=== PATIENT | female | born 1990 | race Two or more races ===

== ENCOUNTER 2017-05-23 09:07 | Emergency (ER) | payer OTHER ==
[2017-05-23 09:34] VITALS: BP 128/72; PULSE 83; TEMP 98.9; BMI 26.5
--- NOTE | 2017-05-23 09:54 | PDOC ---
History of Present Illness - General Chief Complaint: Ear Problem Stated Complaint: RT EAR PAIN/ ABSCESS Time Seen by Provider: 05/23/17 09:35 History Source: Patient Exam Limitations: No Limitations - History of Present Illness Initial Comments: 05/23/17 09:47 26 yr female with c/o left ear ringing and dullness, post nasal drip and cough for one week. no fever, history of asthma. Timing/Duration: 1 week Severity: mild Past History - Past Medical History Allergies/Adverse Reactions: Allergies Allergy/AdvReac Type Severity Reaction Status Date / Time No Known Drug Allergies Allergy Verified 05/23/17 09:35 fruits Allergy Uncoded 05/23/17 09:35 nuts Allergy Uncoded 05/23/17 09:35 raw vegetables Allergy Uncoded 05/23/17 09:35 Home Medications: Ambulatory Orders Azithromycin [Zithromax 250mg Tablets -] 250 mg PO UTDICT #6 tab 05/23/17 Asthma: Yes Thyroid Disease: Yes - Reproductive History (#): 1 - Psycho/Social/Smoking Cessation Hx Anxiety: Yes Suicidal Ideation: No Smoking History: Never smoked If you are a former smoker, when did you quit?: 2yrs ago Information on smoking cessation initiated: No Hx Alcohol Use: Yes (OCCASIONALLY) Substance Use Type: None Review of Systems - Review of Systems Able to Perform ROS?: Yes Is the patient limited Slovak proficient: No Constitutional: No: Symptoms Reported HEENTM: Yes: Symptoms Reported, See HPI Respiratory: Yes: Cough Cardiac (ROS): No: Symptoms Reported ABD/GI: No: Symptoms Reported *Physical Exam - Vital Signs Last Vital Signs Temp Pulse Resp BP Pulse Ox 98.9 F 83 18 128/72 99 05/23/17 09:32 05/23/17 09:32 05/23/17 09:32 05/23/17 09:32 05/23/17 09:32 - Physical Exam Comments: 05/23/17 09:48 General Appearance: Yes: Nourished, Appropriately Dressed HEENT: positive: EOMI, SYLVIA, Pharyngeal Erythema, Other (cerumen impaction left ear ) Respiratory/Chest: positive: Lungs Clear, Normal Breath Sounds. negative: Wheezing Cardiovascular: positive: Regular Rhythm, Regular Rate Gastrointestinal/Abdominal: positive: Normal Bowel Sounds, Soft Musculoskeletal: positive: Normal Inspection Extremity: positive: Normal Capillary Refill, Normal Inspection, Normal Range of Motion Integumentary: positive: Normal Color, Dry, Warm Neurologic: positive: Fully Oriented, Alert, Normal Mood/Affect, Normal Response , Motor Strength /5 Medical Decision Making - Medical Decision Making 05/23/17 09:49 cc: sore throat, ear dullness, post nasal drip, cough for one week no fever no wheezing will check for strep irrigate left ear for cerumen impaction *DC/Admit/Observation/Transfer Diagnosis at time of Disposition: Impacted cerumen of left ear - Discharge Dispostion Disposition: HOME Condition at time of disposition: Good - Prescriptions Prescriptions: Azithromycin [Zithromax 250mg Tablets -] 250 mg PO UTDICT #6 tab - Referrals Referrals: Prashanth Lopez MD [Primary Care Provider] - [place] MD [Staff Physician] - - Patient Instructions Additional Instructions: follow with the ENT doctor for follow up this week use Flonase nasal spray to help with cough and post nasal drip take motrin every 6hrs for any pain gargle with warm salt water 4-5 times a day to help with sore throat take the antibiotic Zpack as directed
== END 2017-05-23 10:36 | disposition home or self-care (01) ==
LOC: JERFT 09:07 → JER 09:07 → JERFT 10:36
PROC: 3E1B78Z Irrigation of Ear using Irrigating Substance, Via Natural or Artificial Opening (ICD-10-PCS; principal; 2017-05-23)
DX: H61.21 Impacted cerumen, right ear (principal)
CPT/HCPCS: 69209; 87070; 87430; 99281-25

== ENCOUNTER 2018-11-12 08:35 | Emergency (ER) | payer OTHER ==
[2018-11-12 08:43] VITALS: TEMP 98.3; BMI 28.3
[2018-11-12 09:27] LABS: HCG,QUALITATIVE URINE Negative
[2018-11-12 09:31] LABS: URINE APPEARANCE CLEAR; URINE BILIRUBIN NEGATIVE (<2.0 mg/dL); URINE COLOR YELLOW; URINE GLUCOSE (UA) NEGATIVE (NEGATIVE); URINE KETONE NEGATIVE (NEGATIVE); URINE LEUK ESTERASE NEGATIVE (NEGATIVE); URINE NITRITE NEGATIVE (NEGATIVE); URINE PROTEIN NEGATIVE (NEGATIVE); URINE UROBILINOGEN NEGATIVE mg/dL (0.2-1.0)
[2018-11-12] MEDS ORDERED: morphine CARPU-JECT 2 MG/1 ML DISP.SYRIN IVPUSH ONE (09:50)
[2018-11-12] MEDS ORDERED: MORPHINE SULFATE 2 MG/ML VIAL ONE (09:52)
[2018-11-12] MEDS ORDERED: ONDANSETRON 4 MG/2 ML VIAL IVPB ONE (10:00)
[2018-11-12] MEDS ORDERED: ONDANSETRON 4 MG/2 ML VIAL ONE (10:02)
[2018-11-12 10:03] LABS: BASO % 0.5 % (0-2.0); EOS % 1.2 % (0-4.5); HEMOGLOBIN 13.3 GM/dL (10.7-15.3); LYMPH % 7.2 % (8-40); MCH 30.5 pg (25.7-33.7); MCHC 35.2 g/dl (32.0-36.0); MEAN CELL VOLUME 86.8 fl (80-96); MONO % 6.3 % (3.8-10.2); NEUT % 84.8 % (42.8-82.8); PLATELET COUNT 244 K/MM3 (134-434); RBC 4.37 M/mm3 (3.60-5.2); RDW 13.3 % (11.6-15.6); WHITE BLOOD COUNT 9.3 K/mm3 (4.0-10.0)
--- NOTE | 2018-11-12 10:15 | PDOC ---
History of Present Illness - General Chief Complaint: Pain Stated Complaint: PAIN Time Seen by Provider: 11/12/18 08:44 History Source: Patient Exam Limitations: No Limitations - History of Present Illness Travel History: No Initial Comments: 11/12/18 12:12 27 y/o female presents to the ED with c/o sudden left suprapubic pain during vaginal sexual intercourse which now radiates to her right side. Pt states no vaginal bleeding or vaginal pain but had felt nauseated after onset of pain. Pt states had similar s/s 1 year prior during intercourse but did not f/u with medical staff. Pt denies back pain, hx ovarian cyst, vaginal discharge, or fever /chills. Timing/Duration: reports: constant Quality: reports: mild, moderate, cramping Abdominal Pain Onset Location: reports: suprapubic (left) Pain Radiation: reports: no radiation Activities at Onset: reports: none Aggravating Factors: improves with: Movement Alleviating Factors: improves with: None Past History - Travel Traveled outside of the country in the last 30 days: No Close contact w/someone who was outside of country & ill: No - Past Medical History Allergies/Adverse Reactions: Allergies Allergy/AdvReac Type Severity Reaction Status Date / Time No Known Drug Allergies Allergy Verified 11/12/18 08:41 fruits Allergy Uncoded 11/12/18 08:41 nuts Allergy Uncoded 11/12/18 08:41 raw vegetables Allergy Uncoded 11/12/18 08:41 Home Medications: Ambulatory Orders NK [No Known Home Medication] 06/08/18 Asthma: Yes COPD: No DVT: No Dementia: No Thyroid Disease: Yes - Reproductive History (#): 1 - Immunization History Immunization Up to Date: Yes - Suicide/Smoking/Psychosocial Hx Smoking History: Never smoked Have you smoked in the past 12 months: No If you are a former smoker, when did you quit?: 2yrs ago Hx Alcohol Use: No Drug/Substance Use Hx: No Substance Use Type: None Patient Lives Alone: No Lives with/in: spouse/SO Review of Systems - Review of Systems Able to Perform ROS?: Yes Constitutional: No: Symptoms Reported HEENTM: No: Symptoms Reported Respiratory: No: Symptoms reported Cardiac (ROS): No: Symptoms Reported ABD/GI: Yes: Nausea, Abdominal cramping : No: Symptoms Reported Musculoskeletal: No: Symptoms Reported Integumentary: No: Symptoms Reported Neurological: No: Symptoms reported *Physical Exam - Vital Signs Last Vital Signs Temp Pulse Resp BP Pulse Ox 98.3 F 95 H 18 120/74 99 11/12/18 08:39 11/12/18 08:39 11/12/18 08:39 11/12/18 08:39 11/12/18 08:39 - Physical Exam General Appearance: Yes: Nourished, Appropriately Dressed. No: Apparent Distress Female Pelvic Exam: positive: normal external exam, adnexal tenderness (left). negative: cervical os closed, discharge, vaginal bleeding Gastrointestinal/Abdominal: positive: Normal Bowel Sounds, Soft, Tenderness ( left /mid/ right suprapubic) Musculoskeletal: negative: CVA Tenderness Extremity: positive: Normal Inspection Integumentary: positive: Normal Color, Warm, Moist Moderate Sedation - Procedure Monitoring Vital Signs: Procedure Monitoring Vital Signs Temperature 98.3 F 11/12/18 08:39 Pulse Rate 95 H 11/12/18 08:39 Respiratory Rate 18 11/12/18 08:39 Blood Pressure 120/74 11/12/18 08:39 O2 Sat by Pulse Oximetry (%) 99 11/12/18 08:39 ED Treatment Course - LABORATORY CBC & Chemistry Diagram: 11/12/18 10:00 11/12/18 10:00 - ADDITIONAL ORDERS Additional order review: Laboratory Results 11/12/18 09:11 Urine Color Yellow Urine Appearance Clear Urine pH 5.0 Ur Specific [place] 1.027 Urine Protein Negative Urine Glucose (UA) Negative Urine Ketones Negative Urine Blood Negative Urine Nitrite Negative Urine Bilirubin Negative Urine Urobilinogen Negative Ur Leukocyte Esterase Negative Urine HCG, Qual Negative 11/12/18 10:00 RBC 4.37 MCV 86.8 MCHC 35.2 RDW 13.3 MPV 9.0 Neutrophils % 84.8 H Lymphocytes % 7.2 L D Monocytes % 6.3 Eosinophils % 1.2 Basophils % 0.5 - RADIOLOGY Radiology Studies Ordered: Category Date Time Status PELVIC / BLADDER US [US] Stat Ultrasound 11/12/18 09:51 Ordered TRANSVAGINAL ULTRASOUND US [US] Stat Ultrasound 11/12/18 09:51 Ordered - Medications Given in the ED: ED Medications Discontinued Medications Generic Name Dose Route Start Last Admin Trade Name Freq PRN Reason Stop Dose Admin Morphine Sulfate 2 mg 11/12/18 09:50 11/12/18 09:59 Morphine Injection - IVPUSH 11/12/18 09:51 2 mg ONCE ONE Administration Ondansetron HCl 4 mg 11/12/18 10:00 11/12/18 10:03 Zofran Injection IVPB 11/12/18 10:01 4 mg ONCE ONE Administration Medical Decision Making - Medical Decision Making 11/12/18 11:17 CC: lower abd pain w/ nausea after vag sexual intercourse . Hx same 1 year prior Exam: left adnexal and generalized suprapubic tenderness Plan: ua hcg, mso4, u/s. labs 11/12/18 12:19 Laboratory Tests 11/12/18 11/12/18 10:00 10:00 WBC 9.3 Hgb 13.3 Hct 38.0 Neutrophils % 84.8 H Sodium 139 Potassium 4.2 Chloride 109 H Carbon Dioxide 23 Anion Gap 6 L BUN 20 H Creatinine 0.6 Random Glucose 86 Calcium 8.7 Total Bilirubin 0.6 AST 14 L ALT 18 Alkaline Phosphatase 66 Total Protein 7.3 Albumin 4.0 ultrasound shows a 3.3 left hem. cyst with small amt of free fluid w/in the cul de sac, pt given percocet and told to f/u with ob/gym or return to ED if s/s worsen *DC/Admit/Observation/Transfer Diagnosis at time of Disposition: Hemorrhagic cyst of left ovary - Discharge Dispostion Disposition: HOME Condition at time of disposition: Improved - Referrals Referrals: ON STAFF,NOT [Primary Care Provider] - - Patient Instructions Printed Discharge Instructions: DI for Ovarian Cyst Additional Instructions: Apply heating pad to area for some relief. Take tylenol or percocet for pain. Return to the ED if symptoms worsen. 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
[2018-11-12 10:41] LABS: ALK PHOS 66 U/L (45-117); ANION GAP 6 MMOL/L (8-16); BILIRUBIN,TOTAL 0.6 mg/dL (0.2-1); BLOOD UREA NITROGEN 20 mg/dL (7-18); CALCIUM 8.7 mg/dL (8.5-10.1); CHLORIDE 109 mmol/L (98-107); CO2 23 mmol/L (21-32); CREATININE 0.6 mg/dL (0.55-1.3); GLUCOSE,RANDOM 86 mg/dL (74-106); POTASSIUM 4.2 mmol/L (3.5-5.1); SGOT/AST 14 U/L (15-37); SGPT/ALT 18 U/L (13-61); SODIUM 139 mmol/L (136-145); TOT PROT 7.3 g/dl (6.4-8.2)
[2018-11-12] MEDS ORDERED: ACETAMINOPHEN 325 MG TABLET (FP) PO ONE (12:15)
[2018-11-12] MEDS ORDERED: ACETAMINOPHEN 325 MG TABLET (FP) ONE (12:19)
[2018-11-12 12:31] VITALS: BP 106/68; PULSE 87
== END 2018-11-12 12:28 | disposition home or self-care (01) ==
LOC: JER 08:35
PROC: 3E033NZ Introduction of Analgesics, Hypnotics, Sedatives into Peripheral Vein, Percutaneous Approach (ICD-10-PCS; principal; 2018-11-12)
PROC: 3E033GC Introduction of Other Therapeutic Substance into Peripheral Vein, Percutaneous Approach (ICD-10-PCS; 2018-11-12)
DX: N83.202 Unspecified ovarian cyst, left side (principal)
CPT/HCPCS: 36415; 76830-TC; 76856-TC; 80053; 81003; 84703; 85025; 87086; 99283-25

== ENCOUNTER 2018-12-31 17:30 | Emergency (ER) | payer OTHER ==
[2018-12-31 17:43] VITALS: BP 119/74; PULSE 117; TEMP 101.4; BMI 28.3
[2018-12-31] MEDS ORDERED: ALBUTEROL SO4 2.5/IPRATROPIUM 0.5 INH SOL 3 ML VIAL.NEB. NEB ONE ×4 (19:34→20:23)
[2018-12-31] MEDS ORDERED: ACETAMINOPHEN 500 MG TABLET (FP) PO ONE (19:34)
[2018-12-31] MEDS ORDERED: ACETAMINOPHEN 500 MG TABLET (FP) ONE (19:47)
[2018-12-31 20:09] LABS: HCG,QUALITATIVE URINE Negative; URINE APPEARANCE SLCLOUDY; URINE BILIRUBIN NEGATIVE (<2.0 mg/dL); URINE COLOR YELLOW; URINE GLUCOSE (UA) NEGATIVE (NEGATIVE); URINE KETONE TRACE (NEGATIVE); URINE LEUK ESTERASE NEGATIVE (NEGATIVE); URINE NITRITE NEGATIVE (NEGATIVE); URINE PROTEIN NEGATIVE (NEGATIVE); URINE UROBILINOGEN NEGATIVE mg/dL (0.2-1.0)
[2018-12-31 20:21] LABS: EPI CELLS RARE /HPF (FEW); URINE MUCUS MANY
--- NOTE | 2018-12-31 20:54 | PDOC ---
History of Present Illness - General Chief Complaint: Pain Stated Complaint: FEVER BACK PAIN Time Seen by Provider: 12/31/18 19:26 History Source: Patient Exam Limitations: Clinical Condition - History of Present Illness Initial Comments: 12/31/18 20:57 Patient with h/o fibromyalgia present with complains of sudden onset of body aches, cough, nasal congestion , fever and back pains to lower back radiating done b/l legs. Patient denies any injury or trauma. Patient also report urinary frequency since today but denies burning with urination or urinary urgency. Patient also report headache which is typical of her migraine PUGA. Denies dizziness , blurry vision or change in vision. Denies N/V. Timing/Duration: other (12 hrs) Past History - Past Medical History Allergies/Adverse Reactions: Allergies Allergy/AdvReac Type Severity Reaction Status Date / Time No Known Drug Allergies Allergy Verified 12/31/18 17:43 fruits Allergy Uncoded 12/31/18 17:43 nuts Allergy Uncoded 12/31/18 17:43 raw vegetables Allergy Uncoded 12/31/18 17:43 Home Medications: Ambulatory Orders Butalb/Acetaminophen/Caffeine [Fioricet 50-300-40 mg Capsule] 1 each PO Q6H PRN #30 capsule 12/31/18 Ciprofloxacin HCl [Cipro] 500 mg PO BID 5 Days #10 tablet 12/31/18 Ipratropium [place] 2 spray NS BID PRN #1 spray 12/31/18 Methocarbamol [Robaxin -] 500 mg PO BID PRN #14 tablet 12/31/18 Methylprednisolone [Medrol Dose [place]] 4 mg PO ASDIR #21 tablet 12/31/18 Asthma: Yes COPD: No DVT: No Dementia: No Thyroid Disease: Yes Other medical history: migraines - Reproductive History (#): 1 - Immunization History Immunization Up to Date: Yes - Suicide/Smoking/Psychosocial Hx Smoking History: Never smoked Have you smoked in the past 12 months: No If you are a former smoker, when did you quit?: 2yrs ago Hx Alcohol Use: No Drug/Substance Use Hx: No Substance Use Type: None Review of Systems - Review of Systems Able to Perform ROS?: Yes Is the patient limited Norwegian proficient: No Constitutional: Yes: Chills, Fever, Malaise HEENTM: Yes: Symptoms Reported, See HPI, Nose Congestion. No: Eye Pain, Blurred Vision, Tearing, Recent change in vision, Double Vision, Cataracts, Ear Pain, Ocular Prothesis, Ear Discharge, Nose Pain, Tinnitus, Nose Bleeding, Hearing Loss, Throat Pain, Throat Swelling, Mouth Pain, Dental Problems, Difficulty Swallowing, Mouth Swelling, Other Respiratory: Yes: Symptoms reported, See HPI, Cough (intermittent). No: Orthopnea, Shortness of Breath, SOB with Exertion, SOB at Rest, Stridor, Wheezing, Productive cough, Hemoptysis, Other Cardiac (ROS): No: Symptoms Reported, See HPI, Chest Pain, Edema, Irregular Heart Rate, Lightheadedness, Palpitations, Syncope, Chest Tightness, Other ABD/GI: No: Constipated, Diarrhea, Nausea, Vomiting, Abdominal cramping : Yes: See HPI, Frequency. No: Burning, Dysuria, Discharge, Flank Pain, Urgency Neurological: Yes: Headache, Numbness, Tingling (b/l posterior thigh). No: Paresthesia, Seizure, Dizziness All Other Systems: Reviewed and Negative *Physical Exam - Vital Signs Last Vital Signs Temp Pulse Resp BP Pulse Ox 101.4 F H 117 H 20 119/74 98 12/31/18 17:41 12/31/18 17:41 12/31/18 17:41 12/31/18 17:41 12/31/18 17:41 - Physical Exam General Appearance: Yes: Nourished, Appropriately Dressed. No: Apparent Distress HEENT: positive: EOMI, SYLVIA, Normal ENT Inspection, Normal Voice, TMs Normal, Pharynx Normal Neck: positive: Supple Respiratory/Chest: positive: Lungs Clear, Normal Breath Sounds. negative: Chest Tender, Respiratory Distress, Accessory Muscle Use Cardiovascular: positive: Regular Rhythm, Regular Rate, S1, S2. negative: Murmur Gastrointestinal/Abdominal: positive: Flat, Soft. negative: Tender, Organomegaly Musculoskeletal: positive: Normal Inspection. negative: CVA Tenderness Extremity: positive: Normal Capillary Refill, Normal Inspection, Normal Range of Motion Integumentary: positive: Normal Color, Dry Neurologic: positive: Fully Oriented, Alert. negative: Normal Mood/Affect Moderate Sedation - Procedure Monitoring Vital Signs: Procedure Monitoring Vital Signs Temperature 101.4 F H 12/31/18 17:41 Pulse Rate 117 H 12/31/18 17:41 Respiratory Rate 20 12/31/18 17:41 Blood Pressure 119/74 12/31/18 17:41 O2 Sat by Pulse Oximetry (%) 98 12/31/18 17:41 ED Treatment Course - ADDITIONAL ORDERS Additional order review: Laboratory Results 12/31/18 19:54 Urine Color Yellow Urine Appearance Slcloudy Urine pH 5.0 Ur Specific [place] 1.017 Urine Protein Negative Urine Glucose (UA) Negative Urine Ketones Trace H Urine Blood 1+ H Urine Nitrite Negative Urine Bilirubin Negative Urine Urobilinogen Negative Ur Leukocyte Esterase Negative Urine WBC (Auto) 3 Urine RBC (Auto) <1 Ur Epithelial Cells Rare Urine Mucus Many Urine HCG, Qual Negative - Medications Given in the ED: ED Medications Discontinued Medications Generic Name Dose Route Start Last Admin Trade Name Osorioq PRN Reason Stop Dose Admin Acetaminophen 1,000 mg 12/31/18 19:34 12/31/18 19:52 Tylenol - PO 12/31/18 19:35 1,000 mg ONCE ONE Administration Albuterol/Ipratropium 1 amp 12/31/18 19:34 12/31/18 19:52 Duoneb - NEB 12/31/18 19:35 1 amp ONCE ONE Administration Albuterol/Ipratropium 1 amp 12/31/18 20:21 12/31/18 20:27 Duoneb - NEB 12/31/18 20:22 1 amp ONCE ONE Administration Medical Decision Making - Medical Decision Making 12/31/18 21:02 Patient with h/o fibromyalgia, Asthma and migraine PUGA present with complains of sudden onset of body aches, cough, nasal congestion , fever and back pains to lower back radiating done b/l legs. Patient denies any injury or trauma. Patient also report urinary frequency since today but denies burning with urination or urinary urgency. Patient also report headache which is typical of her migraine PUGA. Denies dizziness , blurry vision or change in vision. Clinical exam significant for mild wheezing and mild tenderness to lower b/l paravertebral muscle of lumbar spine of L4-S2. normal neuro exam . no CVAT b/l. rapid flu negative. urine hcg negative. UA with no significant findings. Duoneb ordered for wheezing. Tylenol 1g PO ordered for fever and PUGA. 12/31/18 22:48 Patient report feeling better after duoneb. Patient will be treated imperically for possible UTI with cipro given symptoms of fever and back pains which could be unrelated but not able know definitely if related. Patient will be discharge home on medrol-leroy and robaxin for possible sciatica with ortho spine follow- up. Rx for for fioricet given for migraine given patient used to take at home for migraine with PCP follow-up *DC/Admit/Observation/Transfer Diagnosis at time of Disposition: Urinary frequency, Malaise and fatigue Lumbago with sciatica Qualifiers: Chronicity: acute Back pain laterality: bilateral Sciatica laterality: bilateral sciatica Qualified Code(s): M54.42 - Lumbago with sciatica, left side Fever Qualifiers: Fever type: unspecified Qualified Code(s): R50.9 - Fever, unspecified URI (upper respiratory infection) Qualifiers: URI type: unspecified URI Qualified Code(s): J06.9 - Acute upper respiratory infection, unspecified Migraine headache without aura Qualifiers: Status migrainosus presence: without status migrainosus Intractability: not intractable Qualified Code(s): G43.009 - Migraine without aura, not intractable , without status migrainosus - Discharge Dispostion Disposition: HOME Condition at time of disposition: Stable Decision to Admit order: No - Prescriptions Prescriptions: Butalb/Acetaminophen/Caffeine [Fioricet 50-300-40 mg Capsule] 1 each PO Q6H PRN #30 capsule PRN Reason: headache Ciprofloxacin HCl [Cipro] 500 mg PO BID 5 Days #10 tablet Ipratropium [place] 2 spray NS BID PRN #1 spray PRN Reason: nasal congestion Methocarbamol [Robaxin -] 500 mg PO BID PRN #14 tablet PRN Reason: Back Pain Methylprednisolone [Medrol Dose [place]] 4 mg PO ASDIR #21 tablet - Referrals Referrals: Jose Li MD [Staff Physician] - - Patient Instructions Printed Discharge Instructions: Common Cold, DI for Back Pain With Sciatica Additional Instructions: Your flu and urine test was negative. take medications as prescribed. increase fluid intake. follow-up with referred orthopedics for back pains - Post Discharge Activity
== END 2018-12-31 21:08 | disposition home or self-care (01) ==
LOC: JERFT 17:30
PROC: 3E0F7GC Introduction of Other Therapeutic Substance into Respiratory Tract, Via Natural or Artificial Opening (ICD-10-PCS; principal; 2018-12-31)
PROC: 3E0F7GC Introduction of Other Therapeutic Substance into Respiratory Tract, Via Natural or Artificial Opening (ICD-10-PCS; 2018-12-31)
DX: J06.9 Acute upper respiratory infection, unspecified (principal); M54.42 Lumbago with sciatica, left side; G43.009 Migraine without aura, not intractable, without status migrainosus; R53.81 Other malaise; R35.0 Frequency of micturition
CPT/HCPCS: 81003; 81015; 84703; 87086; 87804; 99281-25